=== PATIENT | male | born 1995 | race Caucasian/White ===

== ENCOUNTER 2016-09-03 18:42 | Emergency (ER) | payer OTHER ==
[2016-09-03 18:57] VITALS: BP 133/72
--- NOTE | 2016-09-03 19:31 | UC ---
UC General HPI - HPI Summary HPI Summary: SEVERAL MONTHS OF DAILY EXCESSIVE BURPING. NO ABDOMINAL PAIN. NO RASHES. NO FEVER. WORSE AFTER EATING AND DRINKING. NO HISTORY OF PANCRATIC LIVER OR GALLBLADDER CONCERNS. NO HISTORY OF GERD, HAS BEEN TAKING DAILY PRILOSEC FOR TWO WEEKS WITH NO IMPROVEMENT. - History of Current Complaint Chief Complaint: EDGeneral Stated Complaint: BURPING Time Seen by Provider: 09/03/16 19:02 Hx Obtained From: Patient Onset/Duration: Gradual Onset, Lasting Weeks, Still Present Timing: Intermittent Episodes Lasting: Onset Severity: Moderate Current Severity: Moderate Associated Signs & Symptoms: Negative: Abdominal Pain, Back Pain, Dizziness, Diarrhea, Dysuria, Decreased Oral Intake, Fever, Immunocompromised, Nausea, Vomiting - Allergy/Home Medications Allergies/Adverse Reactions: Allergies Allergy/AdvReac Type Severity Reaction Status Date / Time No Known Allergies Allergy Verified 02/04/16 14:53 Home Medications: Home Medications Lisdexamfetamine Dimesylate [Vyvanse] 30 mg PO 09/03/16 [History] Omeprazole [Prilosec] 09/03/16 [History] buPROPion TAB* [Wellbutrin TAB*] 09/03/16 [History] PMH/Surg Hx/FS Hx/Imm Hx Previously Healthy: Yes Endocrine History Of: Denies: Diabetes, Thyroid Disease Cardiovascular History Of: Denies: Cardiac Disorders, Hypertension Respiratory History Of: Denies: COPD, Asthma GI/ History Of: Denies: Ulcer Psychological History Of: Reports: Anxiety - CONTROL WITH MED, Depression - Surgical History Surgical History: Yes Surgery Procedure, Year, and Place: 2002 HERNIA REPAIR [place] CHILD, [facility] [place] [facility] [place] WISDOM TEETH, 08/2014. 2015 RIGHT METACARPAL CLOSED REDUCTION AND PINNING, [facility] [place] [facility] [place] - Family History Known Family History: Negative: Cardiac Disease Family History: denies family history of DM, CAD HTN - Social History Occupation: Student Lives: Alone Alcohol Use: Weekly Alcohol Amount: 2 DRINKS A WEEK Substance Use Type: Marijuana, Other Substance Use Comment - Amount & Last Used: SOCIAL, MUSHROOMS Smoking Status (MU): Former Smoker Type: Cigarettes Amount Used/How Often: 1-2 CIGARETTES PER DAY FOR ABOUT 1 YEAR Length of Time of Smoking/Using Tobacco: 1 YEAR Have You Smoked in the Last Year: Yes When Did the Patient Quit Smoking/Using Tobacco: 2 WEEKS AGO - Immunization History Most Recent Tetanus Shot: UTD Review of Systems Constitutional: Negative Skin: Negative Eyes: Negative ENT: Negative Respiratory: Negative Cardiovascular: Negative Gastrointestinal: Other - EXCESSIVE BELCHING Genitourinary: Negative Motor: Negative Neurovascular: Negative Musculoskeletal: Negative Neurological: Negative Psychological: Negative All Other Systems Reviewed And Are Negative: Yes Physical Exam Triage Information Reviewed: Yes Appearance: Well-Appearing, No Pain Distress, Well-Nourished Vital Signs: Initial Vital Signs Temp 97.1 F 09/03/16 18:49 Pulse 78 09/03/16 18:49 Resp 18 09/03/16 18:49 BP 133/72 09/03/16 18:49 Pulse Ox 96 09/03/16 18:49 Vital Signs Reviewed: Yes Eye Exam: Normal ENT Exam: Normal ENT: Positive: Normal ENT inspection, Hearing grossly normal, TMs normal Dental Exam: Normal Neck exam: Normal Neck: Positive: Supple, Nontender, No Lymphadenopathy Respiratory Exam: Normal Respiratory: Positive: Chest non-tender, Lungs clear, Normal breath sounds, No respiratory distress, No accessory muscle use Cardiovascular Exam: Normal Cardiovascular: Positive: RRR, No Murmur, Pulses Normal, Brisk Capillary Refill Abdominal Exam: Normal Abdomen Description: Positive: Nontender, No Organomegaly, Soft, Other: - ABDOMEN NONTENDER. Negative: CVA Tenderness (R), CVA Tenderness (L), Distended , Guarding Bowel Sounds: Positive: Present Musculoskeletal Exam: Normal Neurological Exam: Normal Psychological Exam: Normal Skin Exam: Normal Course/Dx - Course Course Of Treatment: PATIENT WAS REFERRED TO [facility] AND INSTRUCTED TO GO TO EMERGENCY DEPARTMENT IF FEVER OR PAIN DEVELOP. (PATIENT CURRENLY PRESENTS WITHOUT PAIN OR DISCOMFORT) - Differential Dx - Multi-Symptom Differential Diagnoses: Metabolic Abnormality Provider Diagnoses: EXCESSIVE BELCHING Discharge - Discharge Plan Condition: Stable Disposition: HOME Patient Education Materials: Indigestion (ED) Referrals: Daniel Carter MD [Medical Doctor] - Hermilo Bernal MD [Primary Care Provider] - Additional Instructions: PLEASE CALL YOUR PRIMARY CARE DOCTOR [facility] TO EVALUATE YOUR EXCESSIVE BURPING. RETURN TO EMERGENCY DEPARTMENT IF YOU HAVE ANY PAIN OR FEVER.
== END 2016-09-03 19:30 | disposition home or self-care (01) ==
LOC: UCEAST 18:42
DX: R14.2 Eructation (principal); F41.8 Other specified anxiety disorders; F12.90 Cannabis use, unspecified, uncomplicated; Z87.891 Personal history of nicotine dependence
CPT/HCPCS: 99211; G0463

== ENCOUNTER 2016-12-07 19:07 | Emergency (ER) | payer OTHER ==
[2016-12-07 19:13] VITALS: BP 129/87
--- NOTE | 2016-12-07 19:51 | RAD ---
INDICATION: Right thumb injury. TECHNIQUE: 3 views of the right thumb were obtained. FINDINGS: The bones are in normal alignment. No fracture is seen. Joint spaces appear maintained. IMPRESSION: NO EVIDENCE FOR FRACTURE.
--- NOTE | 2016-12-07 19:52 | UC ---
Hand/Wrist HPI - HPI Summary HPI Summary: 21 yo male fell today injuring his right thumb no wrist pain c/o pain at base of [facility] he is right handed - History Of Current Complaint Chief Complaint: UCUpperExtremity Stated Complaint: THUMB INJURY Time Seen by Provider: 12/07/16 19:16 Hx Obtained From: Patient Onset/Duration: Sudden Onset, Lasting Hours Severity Initially: Moderate Severity Currently: Moderate Pain Intensity: 4 Pain Scale Used: 0-10 Numeric Character Of Pain: Aching, Throbbing Aggravating Factor(s): Movement Alleviating: Ice, OTC Meds Associated Signs And Symptoms: Positive: Swelling Related History: Dominant Hand Right - Allergies/Home Medications Allergies/Adverse Reactions: Allergies Allergy/AdvReac Type Severity Reaction Status Date / Time No Known Allergies Allergy Verified 12/07/16 19:13 Home Medications: Home Medications Acetaminophen TAB* [Tylenol TAB*] 12/07/16 [History] PMH/Surg Hx/FS Hx/Imm Hx Previously Healthy: Yes - Surgical History Surgical History: Yes Surgery Procedure, Year, and Place: 2002 HERNIA REPAIR A CHILD, [facility] [place]. WISDOM TEETH, 08/2014. 2015 RIGHT METACARPAL CLOSED REDUCTION AND PINNING, [facility] - Family History Known Family History: Positive: Hypertension Negative: Cardiac Disease Family History: denies family history of DM, CAD HTN - Social History Alcohol Use: Occasionally Alcohol Amount: 2 DRINKS A WEEK Substance Use Type: None, Other Substance Use Comment - Amount & Last Used: SOCIAL, MUSHROOMS Smoking Status (MU): Former Smoker Type: Cigarettes Amount Used/How Often: 1-2 CIGARETTES PER DAY FOR ABOUT 1 YEAR Length of Time of Smoking/Using Tobacco: 1 YEAR Have You Smoked in the Last Year: Yes When Did the Patient Quit Smoking/Using Tobacco: 2 WEEKS AGO - Immunization History Most Recent Tetanus Shot: UTD Review of Systems Constitutional: Negative Skin: Negative Eyes: Negative ENT: Negative Respiratory: Negative Cardiovascular: Negative Gastrointestinal: Negative Genitourinary: Negative Motor: Negative Neurovascular: Negative Musculoskeletal: Arthralgia Neurological: Negative Psychological: Negative All Other Systems Reviewed And Are Negative: Yes Physical Exam Triage Information Reviewed: Yes Appearance: Well-Appearing, No Pain Distress, Well-Nourished Vital Signs: Initial Vital Signs Temp 98.0 F 12/07/16 19:10 Pulse 92 12/07/16 19:10 Resp 18 12/07/16 19:10 BP 129/87 12/07/16 19:10 Pulse Ox 99 12/07/16 19:10 Eyes: Positive: Conjunctiva Clear ENT: Positive: Hearing grossly normal. Negative: Nasal congestion, Nasal drainage, Tonsillar exudate, Muffled/hoarse voice Dental Exam: Normal Neck: Positive: Supple, Nontender, No Lymphadenopathy Respiratory: Positive: Lungs clear, Normal breath sounds, No respiratory distress Cardiovascular: Positive: RRR, No Murmur Musculoskeletal: Positive: ROM Limited @ - right thumb Neurological: Positive: Alert, Muscle Tone Normal Psychological: Positive: Normal Response To Family Skin Exam: Normal Hand/Wrist Course/Dx - Course Course Of Treatment: xr (-) - Differential Dx/Diagnosis Provider Diagnoses: right thumb sprain Discharge - Discharge Plan Condition: Stable Disposition: HOME Patient Education Materials: Sprain (ED) Referrals: Lizabeth Novak MD [Medical Doctor] - Additional Instructions: thumb sprain wear splint I suggest you see Dr. Novak in follow up elevate tylenol or advil for pain Images Hands: 1 - tender
== END 2016-12-07 20:02 | disposition home or self-care (01) ==
LOC: UCEAST 19:07
DX: S63.601A Unspecified sprain of right thumb, initial encounter (principal); W19.XXXA Unspecified fall, initial encounter; Y93.9 Activity, unspecified; Y92.9 Unspecified place or not applicable; Y99.9 Unspecified external cause status; Z87.891 Personal history of nicotine dependence
CPT/HCPCS: 99213; G0463